=== PATIENT | male | born 1970 | race Two or more races ===

== ENCOUNTER 2022-02-06 20:45 | Emergency (ER) | payer MEDICAID ==
[~2022-02-06] VITALS: Ht 162.6 cm; Wt 78.4 kg
[2022-02-06] MEDS ORDERED: MECLIZINE HCL 25 MG TAB PO ONE (21:15)
[2022-02-06] MEDS ORDERED: MECL25TA18 PO (21:58)
[2022-02-06] MEDS ORDERED: LORazepam 2MG/ML-1ML VIAL IV ONE (22:15)
[2022-02-06] MEDS ORDERED: LACTATED RINGER'S 1,000 ML IV ONE (22:15)
[2022-02-06] MEDS ORDERED: ONDANSETRON HCL 4 MG/2 ML VIAL IV ONE (22:15)
[2022-02-06 22:30] LABS: Basophils # (auto) 0.1 10 ^3/uL (0-0.2); Basophils % (auto) 0.7 % (0.0-2.0); Eosinophils # (auto) 0 10 ^3/uL (0-0.8); Eosinophils % (auto) 0.5 % (0.0-7.0); Hematocrit 38.5 % (41.0-53.0); Hemoglobin 13.3 g/dL (13.5-17.5); Lymphocytes # (auto) 3.4 10 ^3/uL (0.4-5.4); Lymphocytes % (auto) 45.1 % (10.0-50.0); Mean Corpuscular Hemoglobin 33.4 pg (28.0-32.0); Mean Corpuscular Hgb Conc. 34.5 g/dL (32.0-36.0); Mean Corpuscular Volume 96.9 fL (80.0-100.0); Monocytes # (auto) 0.7 10 ^3/uL (0-1.3); Monocytes % (auto) 8.9 % (0.0-12.0); Neutrophils # (auto) 3.4 10 ^3/uL (1.6-8.6); Neutrophils % (auto) 44.8 % (37.0-80.0); Nucleated Red Blood Cells % 0.1 %; Red Blood Cells 3.98 10^6/uL (4.5-5.90); Red Cell Distribution Width 14.9 % (11.8-14.3); White Blood Cell 7.5 10^3/uL (4.4-10.8)
[2022-02-06 23:03] LABS: Magnesium 2.6 mg/dL (1.6-2.6); Potassium 3.5 mmol/L (3.5-5.1)
[2022-02-06 23:09] LABS: BUN/Creatinine Ratio 8.5; Bilirubin, Total 3.3 mg/dL (0.2-1.0); Total Protein 8.9 g/dL (6.4-8.2)
[2022-02-07] MEDS ORDERED: MECLIZINE HCL 25 MG TAB PO ONE (08:00)
[2022-02-07] MEDS ORDERED: diazePAM 5 MG TAB PO ONE (08:00)
[2022-02-07] MEDS ORDERED: IOHEXOL 350 MG/ML 100ML IJ ONE (08:09)
[2022-02-07 10:21] VITALS: BP 128/84
[2022-02-07] MEDS ORDERED: KETOROLAC TROMETH 30 MG/ML 1ML VIAL IV ONE (10:45)
[2022-02-07] MEDS ORDERED: DICL50TA2 PO (10:55)
[2022-02-07] MEDS ORDERED: CYCL-611 PO (10:55)
== END 2022-02-07 11:08 | disposition home or self-care (01) ==
LOC: ER 20:45
DX: H81.399 Other peripheral vertigo, unspecified ear (principal); R51.9 Headache, unspecified; I10 Essential (primary) hypertension; Z88.0 Allergy status to penicillin; Z20.822 Contact with and (suspected) exposure to COVID-19
CPT/HCPCS: 36415; 70450; 70496; 70498; 80053; 83605; 83735; 84484; 85025; 87426; 96361; 96374; 96375; 99285; J1885; J2060; J2405; J8597; Q9967